=== PATIENT | female | born 1980 | race African-American/Black ===

== ENCOUNTER 2017-02-09 18:40 | Emergency (ER) | payer OTHER ==
[~2017-02-09] VITALS: Ht 160 cm; Wt 97.5 kg
[2017-02-09 20:26] LABS: URINE SOURCE CLEAN CATCH
[2017-02-09 20:30] LABS: URINE APPEARANCE CLEAR; URINE BILIRUBIN NEG (NEG); URINE BLOOD NEG (NEG); URINE COLOR YELLOW; URINE GLUCOSE NEG (NEG); URINE KETONE NEG (NEG); URINE LEUKOCYTE ESTERASE NEG (NEG); URINE NITRATE NEG (NEG); URINE PH 6.5 (5-8); URINE PROTEIN NEG (NEG); URINE SPECIFIC GRAVITY 1.021 (1.003-1.035)
[2017-02-09 20:34] LABS: CULTURE INDICATED? NO
[2017-02-11 23:44] LABS: CHLAMYDIA TRACH Not Detected (Not Detected); N GONOR Not Detected (Not Detected)
== END 2017-02-09 21:35 | disposition home or self-care (01) ==
LOC: CED 18:40 → CFTX 18:40
PROVIDERS: Emergency Medicine
DX: S60.012A Contusion of left thumb without damage to nail, initial encounter (principal); S05.02XA Injury of conjunctiva and corneal abrasion without foreign body, left eye, initial encounter; F17.200 Nicotine dependence, unspecified, uncomplicated; V49.50XA Passenger injured in collision with unspecified motor vehicles in traffic accident, initial encounter; Y92.488 Other paved roadways as the place of occurrence of the external cause
CPT/HCPCS: 81003; 84703; 87491; 87591; 87808; 87905; 99283